=== PATIENT | female | born 1980 | race Caucasian/White ===

== ENCOUNTER 2019-07-14 02:35 | Inpatient (IN) | payer BC ==
[~2019-07-14] VITALS: Ht 175.3 cm; Wt 74.8 kg
[2019-07-14] MEDS ORDERED: DEXT 5%/LR + PITOCIN 20UNITS/L 1,000 ML IV SCH (02:49)
[2019-07-14] MEDS ORDERED: LACTATED RINGERS 1,000 ML IV SCH (02:49)
[2019-07-14] MEDS ORDERED: LIDOCAINE HCL 1% 20ML VIAL (Pyxis) INJ INFIL SCH (03:00)
[2019-07-14] MEDS ORDERED: TERBUTALINE SULFATE 1MG/ML VIAL SUBCUT PRN (03:00)
[2019-07-14] MEDS ORDERED: METHYLERGONOVINE MALEATE 0.2 MG/ML IM PRN (03:00)
[2019-07-14] MEDS ORDERED: NALOXONE HCL 0.4 MG/ML 1ML VIAL IM PRN (03:00)
[2019-07-14] MEDS ORDERED: BUTORPHANOL TARTRATE 2 MG/ML VIAL IV PRN ×3 (03:00→20:30)
[2019-07-14] MEDS ORDERED: CARBOPROST TROMETHAMINE 250 MCG/ML AMPUL IM PRN (03:00)
[2019-07-14] MEDS ORDERED: MISOPROSTOL 100MCG TABLET VG SCH (03:00)
[2019-07-14 04:10] LABS: BASOPHILS % 0.1 % (0.0-2.0); EOSINOPHILS % 0.5 % (0.0-5.0); HEMATOCRIT. 35.2 % (36.0-48.0); HEMOGLOBIN. 11.7 g/dL (12.0-16.0); LYMPHOCYTES % 20.1 % (20.0-50.0); MEAN CORPUSCULAR HEMOGLOBIN 32.5 pg (28.0-32.0); MEAN CORPUSCULAR VOLUME 97.9 fL (81.0-99.0); MEAN PLATELET VOLUME 6.7 fl (7.4-10.4); MONOCYTES % 7.3 % (2.0-8.0); PLATELET 218 x1000/uL (130-400); RED BLOOD CELL COUNT 3.59 mill/uL (4.2-5.4); RED CELL DISTRIBUTION WIDTH 14.2 % (11.6-14.6)
[2019-07-14 04:19] LABS: PARTIAL THROMBOPLASTIN TIME 24.7 sec (23.4-31.0)
[2019-07-14] MEDS ORDERED: BETAMETHASONE ACET/BETAMET 30 MG/5 ML VIAL IM ONE (04:30)
[2019-07-14 04:49] LABS: HEPATITIS B SURFACE ANTIGEN NEGATIVE
[2019-07-14] MEDS ORDERED: BETAMETHASONE ACET/BETAMET 30 MG/5 ML VIAL IM SCH (05:00)
[2019-07-14] MEDS ORDERED: PENICILLIN G POTASSIUM 5 MMU in DEXT 5% WATER 100 ML IV SCH (05:00)
[2019-07-14 08:30] LABS: CLARITY URINE CLOUDY (CLEAR); COLOR URINE BLOODY (YELLOW); KETONES URINE TRACE (NEGATIVE); LEUKOCYTE ESTERASE URINE 3+ (NEGATIVE); NITRITE URINE NEGATIVE (NEGATIVE); OCCULT BLOOD URINE 3+ (NEGATIVE); PROTEIN URINE 2+ (NEGATIVE); SPECIFIC GRAVITY URINE 1.011 (1.005-1.030); UROBILINOGEN URINE 0.2 E.U./dL (0.2-1.0)
[2019-07-14] MEDS ORDERED: PENICILLIN G POTASSIUM 2.5 MMU in DEXTROSE 5% WATER 50 ML IV SCH (09:00)
[2019-07-14 09:21] LABS: *BARBITURATES SCREEN URINE NEGATIVE (NEGATIVE); *BENZODIAZEPINES SCREEN URINE NEGATIVE (NEGATIVE); *COCAINE SCREEN URINE NEGATIVE (NEGATIVE); METHADONE URINE SCREEN NEGATIVE (NEGATIVE)
[2019-07-14 09:22] LABS: *AMPHETAMINES SCREEN URINE NEGATIVE (NEGATIVE); CANNABINOID URINE SCREEN NEGATIVE (NEGATIVE); PHENCYCLIDINE URINE SCREEN NEGATIVE (NEGATIVE)
[2019-07-14 09:37] LABS: OPIATES URINE SCREEN PRESUMTIVE POSITIVE (NEGATIVE)
[2019-07-14] MEDS: VALACYCLOVIR HCL 500MG TABLET PO SCH (13:35)
[2019-07-14] MEDS ORDERED: HYDROCODONE/ACETAMINOPHEN 10/325MG TABLET PO NR (14:30)
[2019-07-14] MEDS ORDERED: CEFAZOLIN SODIUM 1000MG/VIAL ONE (18:11)
[2019-07-14] MEDS ORDERED: PHENYLEPHRINE HCL 10 MG/ML 1ML (IV VIAL) IV ONE (18:11)
[2019-07-14] MEDS ORDERED: OXYTOCIN 10 UNITS/ML 1ML ONE ×2 (18:11→18:48)
[2019-07-14] MEDS ORDERED: EPHEDRINE SULFATE 50MG/ML VIAL ONE (18:11)
[2019-07-14] MEDS ORDERED: ONDANSETRON HCL 4MG/2ML INJ ONE (18:11)
[2019-07-14] MEDS ORDERED: FENTANYL CITRATE/PF 50MCG/ML 2ML VIAL ONE (18:11)
[2019-07-14] MEDS ORDERED: MORPHINE SULFATE/PF 1MG/ML 10ML AMP ONE (18:11)
[2019-07-14] MEDS ORDERED: CITRIC ACID/SODIUM CITRATE SOLN 30ML UDC PO SCH (18:15)
[2019-07-14] MEDS ORDERED: GLYCOPYRROLATE 0.2 MG/ML 2ML VIAL ONE (18:17)
[2019-07-14] MEDS ORDERED: METOCLOPRAMIDE HCL 10MG/2ML VIAL ONE (18:43)
[2019-07-14] MEDS ORDERED: MIDAZOLAM HCL 2 MG/2 ML VIAL ONE ×2 (18:43→18:47)
[2019-07-14] MEDS ORDERED: KETOROLAC 60MG/2ML VIAL IM ONE (19:05)
[2019-07-14 19:30] VITALS: BP 106/61
[2019-07-14] MEDS ORDERED: RHO(D) IMMUNE GLOBULIN 300 MCG/SYR IM PRN (19:45)
[2019-07-14] MEDS ORDERED: BISACODYL 10MG SUPP PR PRN (19:45)
[2019-07-14] MEDS ORDERED: DIPHENHYDRAMINE 25MG CAPSULE PO PRN (19:45)
[2019-07-14] MEDS ORDERED: HYDROCODONE/ACETAMINOPHEN 5/325MG TABLET PO PRN (19:45)
[2019-07-14] MEDS ORDERED: ONDANSETRON HCL 4MG/2ML INJ IV PRN (19:45)
[2019-07-14] MEDS ORDERED: IBUPROFEN 400MG TABLET PO PRN (19:45)
[2019-07-14] MEDS ORDERED: LANOLIN OINT 7GM TUBE TOP PRN (19:45)
[2019-07-14] MEDS ORDERED: NALOXONE HCL 0.4 MG/ML 1ML VIAL IV PRN (20:30)
[2019-07-14] MEDS ORDERED: DIPHENHYDRAMINE 50MG/ML VIAL IM PRN (20:30)
[2019-07-14] MEDS ORDERED: DOCUSATE SODIUM 100MG CAPSULE PO SCH (21:00)
[2019-07-14] MEDS ORDERED: BUTORPHANOL TARTRATE 2 MG/ML VIAL IM PRN (22:00)
[2019-07-14] MEDS: DEXT 5%/LR + PITOCIN 20UNITS/L 1,000 ML IV SCH (23:21)
[2019-07-15] MEDS ORDERED: BUTORPHANOL TARTRATE 2 MG/ML VIAL IV PRN (03:15)
[2019-07-15 04:00] VITALS: BP 115/77
[2019-07-15 07:28] LABS: HEMATOCRIT. 27.7 % (36.0-48.0); HEMOGLOBIN. 9.4 g/dL (12.0-16.0); MEAN CORPUSCULAR HEMOGLOBIN 33.2 pg (28.0-32.0); MEAN PLATELET VOLUME 7.1 fl (7.4-10.4); PLATELET 194 x1000/uL (130-400); RED BLOOD CELL COUNT 2.83 mill/uL (4.2-5.4); RED CELL DISTRIBUTION WIDTH 13.9 % (11.6-14.6)
[2019-07-15] MEDS: DEXT 5%/LR + PITOCIN 20UNITS/L 1,000 ML IV SCH (07:32)
[2019-07-15 07:59] VITALS: BP 108/50
[2019-07-15] MEDS: PRENATAL VIT/FE FUMARATE/FA TABLET PO SCH (09:08)
[2019-07-15] MEDS: KETOROLAC 30MG/ML VIAL IV SCH ×2 (09:08→15:00)
[2019-07-15] MEDS: VALACYCLOVIR HCL 500MG TABLET PO SCH ×2 (11:59→22:13)
[2019-07-15 14:23] LABS: PLATELET ESTIMATE NORMAL
[2019-07-15 16:23] VITALS: BP 97/54
[2019-07-15] MEDS: HYDROCODONE/ACETAMINOPHEN 5/325MG TABLET PO PRN ×2 (17:23→22:12)
[2019-07-15 19:30] VITALS: BP 104/54
[2019-07-16] MEDS: HYDROCODONE/ACETAMINOPHEN 5/325MG TABLET PO PRN ×5 (02:58→21:08)
[2019-07-16 04:00] VITALS: BP 114/55
[2019-07-16 07:30] VITALS: BP 105/69
[2019-07-16] MEDS: PRENATAL VIT/FE FUMARATE/FA TABLET PO SCH (08:16)
[2019-07-16] MEDS: VALACYCLOVIR HCL 500MG TABLET PO SCH ×2 (10:12→21:07)
[2019-07-16] MEDS ORDERED: FLUCONAZOLE 150MG TABLET PO NR (16:00)
[2019-07-16 16:05] VITALS: BP 108/71
[2019-07-16] MEDS: SULFAMETHOXAZOLE/TRIMETHOPRIM 800/160MG TABLET PO SCH (21:09)
[2019-07-16 22:00] VITALS: BP 110/72
[2019-07-17] MEDS: HYDROCODONE/ACETAMINOPHEN 5/325MG TABLET PO PRN ×2 (01:52→08:26)
[2019-07-17 06:00] VITALS: BP 107/71
[2019-07-17] MEDS ORDERED: IBUP-2030 MT (08:18)
[2019-07-17] MEDS ORDERED: MULT1TAB67 MT (08:21)
[2019-07-17] MEDS ORDERED: FERR325T6 MT (08:21)
[2019-07-17] MEDS ORDERED: SULF1TAB48 MT (08:21)
[2019-07-17] MEDS: VALACYCLOVIR HCL 500MG TABLET PO SCH (08:27)
[2019-07-17] MEDS: SULFAMETHOXAZOLE/TRIMETHOPRIM 800/160MG TABLET PO SCH (08:27)
[2019-07-17] MEDS: PRENATAL VIT/FE FUMARATE/FA TABLET PO SCH (08:27)
[2019-07-17 08:30] VITALS: BP 118/72
[2019-07-17 10:01] LABS: BASOPHILS % 0.2 % (0.0-2.0); EOSINOPHILS % 0.9 % (0.0-5.0); HEMATOCRIT. 32.3 % (36.0-48.0); HEMOGLOBIN. 10.9 g/dL (12.0-16.0); LYMPHOCYTES % 24.7 % (20.0-50.0); MEAN CORPUSCULAR HEMOGLOBIN 33.1 pg (28.0-32.0); MEAN CORPUSCULAR VOLUME 98.1 fL (81.0-99.0); MEAN PLATELET VOLUME 6.8 fl (7.4-10.4); MONOCYTES % 5.8 % (2.0-8.0); NEUTROPHILS % 68.4 % (40.0-76.0); PLATELET 242 x1000/uL (130-400); RED BLOOD CELL COUNT 3.29 mill/uL (4.2-5.4); RED CELL DISTRIBUTION WIDTH 14.1 % (11.6-14.6)
[2019-07-19 17:10] LABS: OPIATES CONFIRMATION URINE Negative (Cutoff=200)
== END 2019-07-17 11:15 | disposition home or self-care (01) | DRG 786 ==
LOC: 8 EST LDRP 02:35 → OBSVTOIN 02:35 → 8EST 23:01
PROVIDERS: ADMIT Specialist; ATTEND Specialist
PROC: 10D00Z1 Extraction of Products of Conception, Low, Open Approach (ICD-10-PCS; principal; 2019-07-14)
DX: O34.219 Maternal care for unspecified type scar from previous cesarean delivery (principal); O45.8X3 Other premature separation of placenta, third trimester; O99.344 Other mental disorders complicating childbirth; F41.8 Other specified anxiety disorders; Z3A.33 33 weeks gestation of pregnancy; Z37.0 Single live birth
CPT/HCPCS: 36415; 76805; 76818; 80305; 80361; 81003; 86592; 86703; 86762; 86850; 86900; 86920; 87106; 87340; 88307; J0595; J0690; J0702; J1885; J2250; J2274; J2370; J2405; J2540; J2590; J2765; J3010; J3105; J3490; J7060; A4315